=== PATIENT | male | born 1990 | race Caucasian/White ===

== ENCOUNTER 2025-03-26 10:45 | Emergency (ER) | payer SELFPAY ==
[~2025-03-26] VITALS: Ht 175.3 cm; Wt 70.3 kg
[~2025-03-26 10:45] MED LIST: ALPR.25; BELPTAB PO; CRUTCH USE; ESOM20 PO; HYDACE5 PO; NAPR500 PO; OMEP20ER PO; OXYACE5T PO; PROACE100 PO; PROM25 PO; RXHYDACE PO; RXPROM25 PO; SUBOXONE 2 MG-1 EACH; TRAZ50 PO; [UNRECOGNIZED DRUG - REMARK]
[2025-03-26 11:16] VITALS: BP 118/76
== END 2025-03-26 12:11 | disposition home or self-care (01) ==
LOC: ER 10:45
DX: Z76.0 Encounter for issue of repeat prescription (principal); F17.210 Nicotine dependence, cigarettes, uncomplicated; Z79.899 Other long term (current) drug therapy; Z88.1 Allergy status to other antibiotic agents
CPT/HCPCS: 99281; A9270